=== PATIENT | male | born 1940 | race Caucasian/White ===

== ENCOUNTER 2019-02-20 07:44 | Day surgery (SDC) | payer MEDICARE, OTHER ==
[~2019-02-20 07:44] MED LIST: Sodium Chloride 0.9% 10 ML Syringe FLUSH PRN
[2019-02-20] MEDS ORDERED: Propofol 200 MG/20 ML SDV ONE ×2 (08:28→09:00)
[2019-02-20] MEDS ORDERED: fentaNYL 100 MCG/2 ML SDV ONE (08:28)
[2019-02-20] MEDS ORDERED: Midazolam 1 MG/ML 2 ML SDV ONE ×2 (08:28→09:00)
[2019-02-20] MEDS: Lactated Ringers 1,000 ML IV SCH (08:35)
[2019-02-20] MEDS ORDERED: Ketamine 500 mg/10 ML MDV ONE ×2 (08:59→09:00)
[2019-02-20] MEDS ORDERED: ceFAZolin 1 GM Vial ONE (09:00)
--- NOTE | 2019-02-20 09:09 | PCM.PN ---
- General Info Date of Service: 02/20/19 - Review of Systems Systems Review Comment:: 78 y/o male here for repair of umbilical hernia and colonoscopy. He is medically stable to proceed. His recent H and P is reviewed and no significant changes are noted. I have discussed the proposed colonoscopy and repair of umbilical hernia with the patient. Risks and instructions have been discussed. He agrees to proceed accepting risks. - Patient Data Vitals - Most Recent: Last Vital Signs Temp 97.4 F 02/20/19 08:01 Pulse 90 02/20/19 08:01 Resp 20 02/20/19 08:01 BP 116/77 02/20/19 08:01 Pulse Ox 94 L 02/20/19 08:01 Weight - Most Recent: 109.769 kg Med Orders - Current: Current Medications Lactated Ringer's (Ringers, Lactated) 1,000 mls @ 125 mls/hr IV ASDIRECTED KATHLEEN Last Admin: 02/20/19 08:35 Dose: 125 mls/hr Sodium Chloride (Saline Flush) 10 ml FLUSH ASDIRECTED PRN PRN Reason: Keep Vein Open Discontinued Medications Fentanyl (Sublimaze) Confirm Administered Dose 100 mcg .ROUTE .STK-MED ONE Stop: 02/20/19 08:29 Ketamine HCl (Ketalar) Confirm Administered Dose 500 mg .ROUTE .STK-MED ONE Stop: 02/20/19 09:00 Midazolam HCl (Versed 1 Mg/Ml) Confirm Administered Dose 2 mg .ROUTE .STK-MED ONE Stop: 02/20/19 08:29 Propofol (Diprivan 20 Ml) Confirm Administered Dose 600 mg .ROUTE .STK-MED ONE Stop: 02/20/19 08:29 - Problem List Review Problem List Initiated/Reviewed/Updated: Yes - Assessment Assessment:: umbilical hernia Colon cancer screening - Plan Plan:: repair umbilical hernia Colonoscopy
[2019-02-20] MEDS: Bupivacaine 0.25%/EPINEPHrine 1:200,000 30 ML SDV INFILT ONE (09:18)
--- NOTE | 2019-02-20 10:51 | PCM.OPNOTE ---
- General Post-Op/Procedure Note Date of Surgery/Procedure: 02/20/19 Operative Procedure(s): Umbilical hernia repair and colonoscopy Findings: Moderate sized umbilical hernia containing preperitoneal fat. Extensive Diverticulosis throughout entire colon Pre Op Diagnosis: Umbilical Hernia. Colon Cancer Screening Post-Op Diagnosis: Umbilical Hernia. Diverticulosis of the colon Anesthesia Technique: MAC Primary Surgeon: Waldo Junior Pathology: Umbilical Hernia Sac Output, Urine Amount: 0 EBL in mLs: 10 Complications: None Condition: Good
--- NOTE | 2019-02-20 14:40 | OR ---
Date of Procedure: 02/20/2019 PREOPERATIVE DIAGNOSIS: Umbilical hernia. Need for colon cancer screening. POSTOPERATIVE DIAGNOSIS: Umbilical hernia and vincent-colon diverticulosis. OPERATION PERFORMED: Umbilical hernia repair and colonoscopy. INDICATIONS FOR SURGERY: This 78-year-old male presents today for umbilical hernia repair. He also was due for colon cancer screening and comes for colonoscopy. FINDINGS: The patient has a moderate-sized umbilical hernia that contains preperitoneal fat. The fascial defect is approximately 3 cm in size and surrounding fascia appears to be of good quality. During colonoscopy, the patient was noted to have extensive diverticulosis, which extends through the entire colon with multiple large and small diverticula. These, however, do not appear to be acutely inflamed. DESCRIPTION OF PROCEDURE: The patient was taken to the operating room. He was given intravenous sedation and placed on the operating table in the supine position. The abdomen was sterilely prepped and draped. The periumbilical area was infiltrated with Xylocaine and Marcaine mix. A curvilinear incision was made over the top of the umbilicus. Dissection proceeded down under the hernia sac, which was isolated from the subcutaneous tissue as well as sharply off the skin of the umbilicus. This was freed down to the level of the fascia and the fascial edges exposed circumferentially. The hernia sac was inscribed at the level of the fascia with cautery and then the hernia sac was removed above the clamps with ties of 2-0 Vicryl used for the vascular pedicles. The hernia sac was removed and sent for pathologic evaluation. The remainder of the fatty tissue was reduced and the fascial edges were clearly exposed. The fascial defect was closed in a transverse orientation with interrupted #1 Prolene using a Smead-Poe suturing technique. This created secure and complete closure of the hernia defect. The wound was irrigated and then it was closed. The skin of the umbilicus was tacked down to the underlying fascia with 3-0 Vicryl. Subcutaneous tissue was approximated with interrupted 3-0 Vicryl and the skin was closed with a running 4-0 Vicryl subcuticular stitch, Steri- Strips, and benzoin. Antibiotic ointment and sterile dressing were placed. The patient was then placed on to a wheeled cart and laid in the left lateral decubitus position. Digital rectal exam was performed showing no rectal masses. The Olympus colonoscope was inserted into the rectum. Retroflexed examination of the rectal canal was performed. The scope was then carefully advanced through the entire length of the colon until the cecum was reached. This was somewhat difficult because of the extensive diverticulosis, but with careful manipulation was able to be safely accomplished. Cecum is clearly identified by viewing the normal internal cecal anatomy including the appendiceal orifice and the ileocecal valve. The light was also noted to transilluminate the abdominal wall in the right lower quadrant. After examining the cecum, the scope was slowly withdrawn sequentially re-examining the colonic segments until the entire colon and rectum had been fully examined. The scope was removed and the patient was then taken from the operating room in satisfactory condition. ESTIMATED BLOOD LOSS: 10 mL. COMPLICATIONS: None. PROGNOSIS: Good. ANGUS Junior MD /[id number]
== END 2019-02-20 11:38 | disposition home or self-care (01) ==
LOC: LL.SDS 07:44
PROVIDERS: ATTEND Surgery
DX: Z12.11 Encounter for screening for malignant neoplasm of colon (principal); K42.9 Umbilical hernia without obstruction or gangrene; K57.30 Diverticulosis of large intestine without perforation or abscess without bleeding; K21.9 Gastro-esophageal reflux disease without esophagitis; I10 Essential (primary) hypertension; E11.9 Type 2 diabetes mellitus without complications; E78.5 Hyperlipidemia, unspecified; E66.9 Obesity, unspecified; Z88.6 Allergy status to analgesic agent; Z88.5 Allergy status to narcotic agent; Z88.8 Allergy status to other drugs, medicaments and biological substances; Z68.35 Body mass index [BMI] 35.0-35.9, adult; Z79.899 Other long term (current) drug therapy
CPT/HCPCS: 00750; 00812; J0690; J2001; J2250; J2704; J7120

== ENCOUNTER 2020-01-26 19:40 | Emergency (ER) | payer MEDICARE, OTHER ==
--- NOTE | 2020-01-26 20:15 | EDM.PDOC ---
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) Left Hand Pain Score (Numeric/FACES): 3 - Related Data Allergies Allergy/AdvReac Type Severity Reaction Status Date / Time aspirin Allergy Other Verified 01/26/20 19:52 NSAIDS (Non-Steroidal Allergy Other Verified 01/26/20 19:52 Anti-Inflamma tramadol Allergy Rash Verified 01/26/20 19:52 valsartan Allergy Other Verified 02/19/19 20:46 Home Meds: Home Meds Pantoprazole [ProTONIX] 40 mg PO ACBREAKFAST 05/22/17 [History] Valsartan/Hydrochlorothiazide [Diovan Hct 320-25 mg Tablet] 1 tab PO DAILY 1 07/23/16 [History] predniSONE [Prednisone] 10 mg PO DAILY 05/22/17 [History] DULoxetine [Cymbalta] 60 mg PO 02/20/19 [History] Fenofibrate,Micronized [Fenofibrate] 02/20/19 [History] Hydrocodone/Acetaminophen [Hydrocodon-Acetaminophen 5-325] 1 - 2 tab PO Q4HR PRN #20 tablet 02/20/19 [Rx] LORazepam [Ativan] 02/20/19 [History] atorvaSTATin [Lipitor] 20 mg PO 02/20/19 [History] oxyCODONE 02/20/19 [History] Past Medical History HEENT History: Reports: None Cardiovascular History: Reports: Heart Murmur, High Cholesterol, Hypertension Respiratory History: Reports: Pneumonia, Recurrent Gastrointestinal History: Reports: Diverticulosis, GERD, GI Bleed Musculoskeletal History: Reports: Back Pain, Chronic, Neck Pain, Chronic, Other (See Below) Other Musculoskeletal History: polymyalgia rheumatica. 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 chronic severe neck pain. mild T12 compression fracture 04/2018 Endocrine/Metabolic History: Reports: Diabetes, Type II Hematologic History: Reports: Anemia - Past Surgical History Neurological Surgical History: Reports: Laminectomy Musculoskeletal Surgical History: Reports: Carpal Tunnel, Hip Replacement, Other (See Below) Other Musculoskeletal Surgeries/Procedures:: Laminectomy of cervical spine. 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 Bilateral partial knee replacements Social & Family History - Caffeine Use Caffeine Use: Reports: None Course - Vital Signs Last Recorded V/S: Last Vital Signs Temp 98.7 F 01/26/20 19:40 Pulse 72 01/26/20 19:40 Resp 16 01/26/20 19:40 BP 164/98 H 01/26/20 19:40 Pulse Ox 100 01/26/20 19:40 Departure - Discharge Information Referrals: Nemo Vigil PA [Primary Care Provider] - Sepsis Event Note (ED) - Evaluation Sepsis Screening Result: No Definite Risk - Focused Exam Vital Signs: Vital Signs Temp Pulse Resp BP Pulse Ox 01/26/20 19:40 98.7 F 72 16 164/98 H 100
[2020-01-26] MEDS ORDERED: Bacitracin/Neomycin/Polymyxin B Oint 0.9 GM U/D Packet TOP ONE (20:30)
--- NOTE | 2020-01-26 20:30 | EDM.PDOC ---
ED HPI GENERAL MEDICAL PROBLEM - General Chief Complaint: Laceration Stated Complaint: L HAND LACERATION Time Seen by Provider: 01/26/20 20:05 Source of Information: Reports: Patient History Limitations: Reports: No Limitations - History of Present Illness INITIAL COMMENTS - FREE TEXT/NARRATIVE: Pt sustained cuts to left hand on 5th finger and left palm. 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) Left Hand Pain Score (Numeric/FACES): 3 - Related Data Allergies Allergy/AdvReac Type Severity Reaction Status Date / Time aspirin Allergy Other Verified 01/26/20 19:52 NSAIDS (Non-Steroidal Allergy Other Verified 01/26/20 19:52 Anti-Inflamma tramadol Allergy Rash Verified 01/26/20 19:52 valsartan Allergy Other Verified 02/19/19 20:46 Home Meds: Home Meds Pantoprazole [ProTONIX] 40 mg PO ACBREAKFAST 05/22/17 [History] Valsartan/Hydrochlorothiazide [Diovan Hct 320-25 mg Tablet] 1 tab PO DAILY 05/22/17 [History] predniSONE [Prednisone] 10 mg PO DAILY 05/22/17 [History] DULoxetine [Cymbalta] 60 mg PO 02/20/19 [History] Fenofibrate,Micronized [Fenofibrate] 02/20/19 [History] Hydrocodone/Acetaminophen [Hydrocodon-Acetaminophen 5-325] 1 - 2 tab PO Q4HR PRN #20 tablet 02/20/19 [Rx] LORazepam [Ativan] 02/20/19 [History] atorvaSTATin [Lipitor] 20 mg PO 02/20/19 [History] oxyCODONE 02/20/19 [History] Past Medical History HEENT History: Reports: None Cardiovascular History: Reports: Heart Murmur, High Cholesterol, Hypertension Respiratory History: Reports: Pneumonia, Recurrent Gastrointestinal History: Reports: Diverticulosis, GERD, GI Bleed Musculoskeletal History: Reports: Back Pain, Chronic, Neck Pain, Chronic, Other (See Below) Other Musculoskeletal History: polymyalgia rheumatica. 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 chronic severe neck pain. mild T12 compression fracture 04/2018 Endocrine/Metabolic History: Reports: Diabetes, Type II Hematologic History: Reports: Anemia - Past Surgical History Neurological Surgical History: Reports: Laminectomy Musculoskeletal Surgical History: Reports: Carpal Tunnel, Hip Replacement, Other (See Below) Other Musculoskeletal Surgeries/Procedures:: Laminectomy of cervical spine. 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 Bilateral partial knee replacements Social & Family History - Caffeine Use Caffeine Use: Reports: None ED ROS GENERAL - Review of Systems Review Of Systems: See Below Skin: Reports: Other (left palm and left 5th finger with lacerations) ED EXAM, SKIN/RASH Exam: See Below Exam Limited By: No Limitations Skin: Other (left palm with 4 cm transverse laceration Left 5th finger with 2 cm laceration Tendon exam intact) ED SKIN PROCEDURES - Laceration/Wound Repair Left Hand Appearance: Superficial Distal NVT: Neuro & Vascular Intact, No Tendon Injury Anesthetic Type: Local Local Anesthesia - Lidocaine (Xylocaine): 1% Plain Local Anesthetic Volume: 5cc Skin Prep: Chlorhexidine (Hibiciens), Providone-Iodine (Betadine) Exploration/Debridement/Repair: Wound Explored, Minimal Debridement Closed with: Sutures Lac/Wound length In cm: 6 Suture Size: 3-0 # of Sutures: 9 Suture Type: Nylon Sterile Dressing Applied: Nurse Tetanus Status Addressed: Yes Complications: No Progress/Comments: Left palm laceration closed with 5 sutures Left 5th finger closed with 4 sutures Course - Vital Signs Last Recorded V/S: Last Vital Signs Temp 98.7 F 01/26/20 19:40 Pulse 72 01/26/20 19:40 Resp 16 01/26/20 19:40 BP 164/98 H 01/26/20 19:40 Pulse Ox 100 01/26/20 19:40 - Orders/Labs/Meds Meds: Medications Discontinued Medications Generic Name Dose Route Start Last Admin Trade Name Gilbert PRN Reason Stop Dose Admin Lidocaine HCl Confirm 01/26/20 20:09 Xylocaine 2% Administered 01/26/20 20:10 Dose 10 ml .ROUTE .STK-MED ONE Departure - Departure Time of Disposition: 20:30 Disposition: Home, Self-Care 01 Clinical Impression: Hand laceration Qualifiers: Encounter type: initial encounter Foreign body presence: without foreign body Laterality: left Qualified Code(s): S61.412A - Laceration without foreign body of left hand, initial encounter - Discharge Information *PRESCRIPTION DRUG MONITORING PROGRAM REVIEWED*: Not Applicable *COPY OF PRESCRIPTION DRUG MONITORING REPORT IN PATIENT CELSA: Not Applicable Instructions: Wound Care, Adult, Sutured Wound Care Referrals: Nemo Vigil PA [Primary Care Provider] - Forms: ED Department Discharge Additional Instructions: Keep wound clean Sutures out in 10 days Follow up in clinic Sepsis Event Note (ED) - Evaluation Sepsis Screening Result: No Definite Risk - Focused Exam Vital Signs: Vital Signs Temp Pulse Resp BP Pulse Ox 01/26/20 19:40 98.7 F 72 16 164/98 H 100
== END 2020-01-26 21:05 | disposition home or self-care (01) ==
LOC: LL.ED 19:40
DX: S61.217A Laceration without foreign body of left little finger without damage to nail, initial encounter (principal); E78.00 Pure hypercholesterolemia, unspecified; I10 Essential (primary) hypertension; E11.9 Type 2 diabetes mellitus without complications; Z88.6 Allergy status to analgesic agent; Z88.8 Allergy status to other drugs, medicaments and biological substances; Z88.5 Allergy status to narcotic agent; W26.8XXA Contact with other sharp object(s), not elsewhere classified, initial encounter
CPT/HCPCS: 12001; 99282; J2001; 12002

== ENCOUNTER 2025-03-09 09:37 | Emergency (ER) | payer MEDICARE, OTHER | END 2025-03-09 11:56 | disposition home or self-care (01) | LOC: LL.ED 09:37 | DX: S40.012A Contusion of left shoulder, initial encounter (principal); I10 Essential (primary) hypertension; E78.00 Pure hypercholesterolemia, unspecified; E11.9 Type 2 diabetes mellitus without complications; Z88.8 Allergy status to other drugs, medicaments and biological substances; Z79.899 Other long term (current) drug therapy; Z79.84 Long term (current) use of oral hypoglycemic drugs; W01.0XXA Fall on same level from slipping, tripping and stumbling without subsequent striking against object, initial encounter | CPT/HCPCS: 73030-LT; 99283 ==